=== PATIENT | female | born 1990 | race Caucasian/White ===

== ENCOUNTER 2024-08-07 11:41 | Emergency (ER) | payer MEDICARE, MEDICAID ==
[~2024-08-07] VITALS: Ht 175.3 cm; Wt 121.4 kg
[~2024-08-07 11:41] MED LIST: LEVO50TA8 PO; NICO-687 TOP; QUET-1 PO
[2024-08-07 13:47] LABS: URINE AMPHETAMINE SCREEN POSITIVE (Neg); URINE BARBITUATE SCREEN NEGATIVE (Neg); URINE BENZODIAZEPINES SCREEN NEGATIVE (Neg); URINE CANNABINOID SCREEN POSITIVE (Neg); URINE COCAINE SCREEN NEGATIVE (Neg); URINE METHADONE SCREEN NEGATIVE (Neg); URINE OPIATE SCREEN NEGATIVE (Neg); URINE PHENCYCLIDINE SCREEN NEGATIVE (Neg)
[2024-08-07 14:07] LABS: BASOPHILS # (AUTO) 0.1 X10'3 (0-0.2); BASOPHILS % (AUTO) 0.7 % (0-1); EOSINOPHILS # (AUTO) 0.1 X10'3 (0-0.9); EOSINOPHILS % (AUTO) 1.2 % (0-6); HEMATOCRIT 43.2 % (35.0-45.0); HEMOGLOBIN 14.3 g/dl (12.0-16.0); LYMPHOCYTES # (AUTO) 2.8 X10'3 (1.1-4.8); LYMPHOCYTES % (AUTO) 25.1 % (21-51); MEAN CORPUSCULAR HEMOGLOBIN 29.8 PG (27.0-31.0); MEAN CORPUSCULAR HGB CONC 33.1 g/dL (33.0-36.5); MEAN CORPUSCULAR VOLUME 89.9 FL (78-98); MEAN PLATELET VOLUME 8.8 FL (7.4-10.4); MONOCYTES # (AUTO) 0.8 X10'3 (0-0.9); MONOCYTES % (AUTO) 7.1 % (2-12); NEUTROPHILS # (AUTO) 7.3 X10'3 (1.8-7.7); NEUTROPHILS % (AUTO) 65.9 % (42-75); PLATELET COUNT 271 X10'3 (140-440); RED CELL DISTRIBUTION WIDTH 13.8 % (11.5-14.5); WHITE BLOOD COUNT 11.1 X10'3 (4.5-11.0)
[2024-08-07 14:15] LABS: COLOR,URINE YELLOW (Yellow); GLUCOSE, URINE NEGATIVE (Neg); NITRITES, URINE NEGATIVE (Neg); UROBILINOGEN,URINE 0.2 E.U/dL (0.2-1.0)
[2024-08-07 14:20] LABS: BILIRUBIN,URINE NEGATIVE (Neg); KETONES,URINE NEGATIVE (Neg); LEUKOCYTE ESTERASE ,URINE NEGATIVE (Neg); OCCULT BLOOD,URINE TRACE-INTACT (Neg); PROTEIN,URINE NEGATIVE (Neg)
[2024-08-07 14:26] LABS: CLARITY,URINE SLIGHTLY CLOUDY (Clear); UA COLLECTION TYPE CLN CATCH MIDSTREAM
[2024-08-07 14:29] LABS: BACTERIA,URINE 2+ /HPF (Neg); MUCUS STRANDS FEW /LPF (Neg); RBC,URINE 0-2 /HPF (0-2); RENAL CELLS, URINE FEW /HPF; SQUAMOUS EPITHELIAL CELL,UR MANY /LPF (FEW); TRANSITIONAL EPI CELLS,URINE MODERATE /HPF
[2024-08-07 14:30] LABS: ALBUMIN 3.9 G/DL (3.4-5.0); ANION GAP 9 (8-16); BLOOD UREA NITROGEN 11 MG/DL (7-18); BUN/CREATININE RATIO 20.4 (10.0-20.0); CALCIUM 8.9 MG/DL (8.5-10.1); CHLORIDE 106 MMOL/L (99-107); CREATININE 0.54 MG/DL (0.40-0.90); ETHANOL < 10 MG/DL (<10); GLUCOSE 80 MG/DL (70-104); POTASSIUM 3.9 MMOL/L (3.5-5.1); SODIUM 141 MMOL/L (135-145); THYROID STIMULATING HORMONE 1.98 ulU/ml (0.34-4.50); TOTAL CARBON DIOXIDE 26.4 MMOL/L (24-32); eCRCL 153 ML/MIN; eGFR > 90 ML/MIN
[2024-08-07 22:03] LABS: URINE HCG NEGATIVE (NEG)
[2024-08-08 13:40] VITALS: BP 122/63; PULSE 72; RESP 16; TEMP 98.2; O2SAT 99
== END 2024-08-08 13:46 | disposition still patient (30) ==
LOC: ER 11:41
DX: F32.A Depression, unspecified (principal); R45.851 Suicidal ideations; E03.9 Hypothyroidism, unspecified; F20.9 Schizophrenia, unspecified; Z88.1 Allergy status to other antibiotic agents; Z88.5 Allergy status to narcotic agent; Z20.822 Contact with and (suspected) exposure to COVID-19
CPT/HCPCS: 36415; 80048; 80305; 81001; 81025; 84443; 85025; 87811; 99284; G0480; 80320

== ENCOUNTER 2024-10-30 12:48 | Emergency (ER) | payer MEDICARE, MEDICAID ==
[~2024-10-30] VITALS: Ht 176.5 cm; Wt 109.1 kg
[2024-10-30 13:08] VITALS: BP 141/93; PULSE 107; RESP 18; TEMP 97.1; O2SAT 98
--- NOTE | 2024-10-30 14:31 | Physician Documentation ---
History of Present Illness ~ Chief Complaint: Medical Clearance Stated Complaint: MED CLEARANCE Time Seen by MD: 13:59 Primary Medical Doctor: Roseann Wang [facility] This is a 34-year-old female with a history of methamphetamine abuse who presents for a medical clearance to enter [facility] for methamphetamine abuse patient reports feeling otherwise well and has no medical or mental health concerns at this time. Patient reports that she did use methamphetamine approximately 4 hours prior to presentation today. Patient reports no history of opioid use and reports that she drinks alcohol very infrequently on an low quantities. Tetanus within 5 years?: No (2007) Medication Reconciliation Allergies: Coded Allergies: clindamycin (Unverified Allergy, Severe, 10/30/24) vancomycin (Verified Allergy, Severe, itching/hives, 08/07/24) banana (Unverified Allergy, Unknown, 10/30/24) codeine (Verified Allergy, Unknown, 08/07/24) haloperidol (Unverified Allergy, Unknown, 10/30/24) latex (Unverified Allergy, Unknown, 10/30/24) Scheduled Levothyroxine Sodium (Levothyroxine Sodium), 1 TAB PO DAILY, (Reported) Nicotine 21 MG Patch* (Habitrol 21 MG Patch*), 1 PATCH TOP DAILY, (Reported) Quetiapine Fumarate (Seroquel), 100 MG PO Q4H Past Medical History Past Medical History: *GI/HEPATOBILIARY*, Hypothyroidism, Bipolar, Schizophrenia Past Surgical History: noncontributory Other Past Family History: NONE Alcohol Use: None Drug Use: none Lives with: Father Lives In: Home, Other Occupation: unemployed Review of Systems ROS As stated above in the HPI, otherwise all systems are reviewed and negative. Physical Exam Vital Signs: Temperature: 97.1, Source: Temporal, Heart Rate: 107, Respiratory Rate: 18, BP: 141/93, Pulse Oximetry: 98, Weight: 109.090 Oxygen Flow Rate: 0 Physical Exam VITALS: Reviewed and as above. GENERAL: Alert and oriented, nontoxic appearing, no apparent distress. HEENT: Normocephalic, atraumatic, PERRL, EOMI, dry mucosa, uvula midline, no lymphadenopathy, no neck tenderness RESPIRATORY: Lungs clear, normal breath sounds, no respiratory distress. CHEST: No accessory muscle use, no retractions CV: Mildly tachycardic otherwise Regular rate and rhythm, no murmur GI: Soft, non-tender, bowels sounds present, no rebound, guarding, or rigidity BACK: No CVA tenderness, no midline tenderness MUSCULOSKELETAL No deformities SKIN: Warm and dry, no rash PSYCH: Normal mood and affect, no agitation Progress Results/Orders Results/Orders Vital Signs 10/30/24 13:08 Temp 97.1 Pulse 107 Resp 18 B/P (MAP) 141/93 Pulse Ox 98 O2 Flow Rate 0 Medical Decision Making Findings This is an otherwise well-appearing 34-year-old female with history of methamphetamine abuse who presented requesting medical clearance to enter rehab program for methamphetamine abuse, patient was somewhat tachycardic on triage though this is attributed to her recent methamphetamine use. Patient reported feeling otherwise well and reported no medical or mental health concerns or symptoms. Physical exam was benign. As patient reported no history of alcohol, benzodiazepine, or opioid abuse I believe there is a low risk for withdrawal symptoms requiring treatment and is low risk for seizures related to alcohol or benzodiazepine withdrawal. At this time appears to be no acute medical condition present and patient is medically cleared to enter rehab program. Patient instructed to follow up with primary care provider for further management and provided return to care precautions which she verbalized understanding of. Differential Dx:Considerations: Include: Intoxication-Alcohol, Intoxication- Other drug, Substance abuse disorder, Acute delirium, Alcohol withdrawl syndrom Departure Time of Disposition: 14:30 Disposition: 01 HOME / SELF CARE / HOMELESS Impression: Primary Impression: General medical exam Condition: Improved Discharge Instructions: Medical Screening Exam Additional Instructions: You are medically cleared to enter [facility]. Please follow up with your primary care provider or [facility] in the next few days. Please return to the emergency department for any new or worsening concerning symptoms. Referrals: NO PRIMARY CARE PROVIDER (PCP) Education Educated: Patient Educated regarding: diagnosis, treatment, prognosis, need for follow up Signature Scribe Signature: No Scribe Attestation: The note accurately reflects work and decisions made by me.FARSHAD Hernandez 10/31/24 02:03 SYLVESTER HARTMAN October 30, 2024 14:31
== END 2024-10-30 14:40 | disposition home or self-care (01) ==
LOC: ER 12:49
DX: Z00.8 Encounter for other general examination (principal); E03.9 Hypothyroidism, unspecified; F20.9 Schizophrenia, unspecified; F31.9 Bipolar disorder, unspecified; F15.10 Other stimulant abuse, uncomplicated; Z88.1 Allergy status to other antibiotic agents; Z88.5 Allergy status to narcotic agent
CPT/HCPCS: 99281